=== PATIENT | female | born 1995 | race Two or more races ===

== ENCOUNTER 2017-12-15 06:42 | Emergency (ER) | payer SELFPAY ==
[2017-12-15 06:55] VITALS: BP 127/95; PULSE 120; TEMP 97.7; BMI 27.2
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
== END 2017-12-15 08:33 | disposition left against medical advice (07) ==
LOC: JER 06:42
DX: G50.1 Atypical facial pain (principal); Y04.8XXA Assault by other bodily force, initial encounter; Y07.03 Male partner, perpetrator of maltreatment and neglect; Y93.9 Activity, unspecified; Y92.9 Unspecified place or not applicable
CPT/HCPCS: 99284-25